=== PATIENT | female | born 1995 | race Caucasian/White ===

== ENCOUNTER 2019-12-09 14:03 | Emergency (ER) | payer MEDICAID ==
[2019-12-09 14:12] VITALS: BP 128/84
--- NOTE | 2019-12-09 16:19 | ED Physician Documentation ---
PD HPI HEENT - Stated complaint Stated Complaint: MOUTH PX - Chief complaint Chief Complaint: Heent - History obtained from History obtained from: Patient - History of Present Illness Timing - onset: How many days ago (3) Timing - duration: Days (3) Timing - details: Gradual onset, Still present Location: Tooth Improves: Medication Associated symptoms: No: Fever, Congestion, Rhinorrhea, Trismus, Unable to swallow, Swollen nodes, Facial swelling, Headache, Cough Similar symptoms before: Has not had sx before Recently seen: Not recently seen - Additional information Additional information: 24-year-old female previously well has developed some pain in the left upper tooth. She has been taking some Tylenol for this and this has not been helping. She has never had something like this happen to her before. She did noticed a crack in her tooth and she has not had any drainage from the area or any specific swelling that she can feel. She has not had a fever. Review of Systems Constitutional: denies: Fever Eyes: denies: Decreased vision Ears: denies: Ear pain Nose: denies: Rhinorrhea / runny nose, Congestion Throat: reports: Dental pain / toothache. denies: Sore throat Cardiac: denies: Chest pain / pressure Respiratory: denies: Dyspnea, Cough GI: denies: Vomiting PD PAST MEDICAL HISTORY - Present Medications Home Medications: Ambulatory Orders Medication Instructions Recorded Confirmed Amoxicillin 875 mg PO BID #14 tablet 12/09/19 Hydrocodone/Acetaminophen 1 - 2 each PO Q6H PRN #14 tablet 12/09/19 [Hydrocodon-Acetaminophen 5-325] - Allergies Allergies/Adverse Reactions: Allergies Allergy/AdvReac Type Severity Reaction Status Date / Time No Known Drug Allergies Allergy Verified 12/09/19 14:12 PD ED PE NORMAL - Vitals Vital signs reviewed: Yes (hypertensive ) - General General: Alert and oriented X 3, No acute distress, Well developed/nourished - HEENT HEENT: Atraumatic, PERRL, EOMI, Pharynx benign, Other (There is tenderness to the left #2 tooth without swelling or fluctuance to the gingival buccal fold.) - Neck Neck: Supple, no meningeal sign, No bony TTP - Cardiac Cardiac: RRR, No murmur - Respiratory Respiratory: No respiratory distress, Clear bilaterally - Derm Derm: Normal color, Warm and dry, No rash - Extremities Extremities: No deformity, No edema - Neuro Neuro: Alert and oriented X 3, otolaryngology physician 2-12 intact, No motor deficit, No sensory deficit Eye Opening: Spontaneous Motor: Obeys Commands Verbal: Oriented GCS Score: 15 - Psych Psych: Normal mood, Normal affect Results - Vitals Vitals: Vital Signs - 24 hr 12/09/19 14:10 Temperature 36.7 C Heart Rate 85 Respiratory 20 Rate Blood Pressure 128/84 H O2 Saturation 98 Oxygen O2 Source Room air PD MEDICAL DECISION MAKING - ED course Complexity details: considered differential, d/w patient ED course: Previously well 23-year-old female has a tooth ache with a crack in the tooth no obvious drainable abscess. Departure - Departure Disposition: 01 Home, Self Care Clinical Impression: Dental abscess Condition: Stable Instructions: ED Abscess Dental Follow-Up: Your, dentist [Other] Prescriptions: Amoxicillin 875 mg PO BID #14 tablet Hydrocodone/Acetaminophen [Hydrocodon-Acetaminophen 5-325] 1 - 2 each PO Q6H PRN #14 tablet PRN Reason: pain Forms: Activity restrictions
== END 2019-12-09 16:51 | disposition home or self-care (01) ==
LOC: ED 14:03
DX: K04.7 Periapical abscess without sinus (principal); K03.81 Cracked tooth
CPT/HCPCS: 99282; 99284

== ENCOUNTER 2019-12-11 19:54 | Emergency (ER) | payer MEDICAID ==
[2019-12-11 20:01] VITALS: BP 125/81
--- NOTE | 2019-12-11 20:32 | ED Physician Documentation ---
History of Present Illness - Stated complaint Stated Complaint: FLU LIKE SX - Chief complaint Chief Complaint: General - Additonal information Additional information: This is a 24-year-old female who presents with cough, sinus congestion, general malaise. Patient states that she was seen recently for tooth pain and at that time she also was having some cough and nasal symptoms but did not want a bring up too many things at once so she decided to come back here for a recheck today. She has not had any measured fever. She has had slight nausea but no abdominal pain, no dysuria. Some chronic loose stool but no changes to this. She has not had any vomiting, shortness of breath, no chest pain. She does have a mild frontal headache which was gradual in onset and is currently mild in severity. Review of Systems Constitutional: denies: Fever Nose: reports: Rhinorrhea / runny nose Cardiac: denies: Chest pain / pressure Respiratory: reports: Cough. denies: Dyspnea GI: denies: Vomiting PD PAST MEDICAL HISTORY - Present Medications Home Medications: Ambulatory Orders Medication Instructions Recorded Confirmed Amoxicillin 875 mg PO BID #14 tablet 12/09/19 12/11/19 Hydrocodone/Acetaminophen 1 - 2 each PO Q6H PRN #14 tablet 12/09/19 12/11/19 [Hydrocodon-Acetaminophen 5-325] Benzonatate [Tessalon Perle] 100 - 200 mg PO TID PRN #30 capsule 12/11/19 - Allergies Allergies/Adverse Reactions: Allergies Allergy/AdvReac Type Severity Reaction Status Date / Time No Known Drug Allergies Allergy Verified 12/11/19 20:01 PD ED PE NORMAL - Vitals Vital signs reviewed: Yes - General General: Alert and oriented X 3, No acute distress - HEENT HEENT: PERRL, Ears normal, Other (Posterior pharynx erythema, no exudate. Tonsils are surgically absent.) - Neck Neck: Supple, no meningeal sign - Cardiac Cardiac: RRR, No murmur - Respiratory Respiratory: No respiratory distress, Clear bilaterally - Abdomen Abdomen: Normal bowel sounds, Soft, Non tender, Non distended, Other (No tenderness to the palpation of all 4 quadrants.) - Derm Derm: Warm and dry - Extremities Extremities: No deformity - Neuro Neuro: Alert and oriented X 3 - Psych Psych: Normal mood, Normal affect Results - Vitals Vitals: Vital Signs - 24 hr 02/19/20 19:58 Temperature 36.6 C Heart Rate 80 Respiratory 18 Rate Blood Pressure 125/81 H O2 Saturation 100 Oxygen O2 Source Room air PD MEDICAL DECISION MAKING - ED course ED course: Patient is very well-appearing on examination. Her symptoms are consistent with a viral syndrome, she has no signs of pneumonia, sinusitis, or bacterial infection at this time. No abdominal pain or tenderness. She is on amoxicillin for her dental pain, and she also does have some hydrocodone which is taking for her dental pain. I think this is reasonable treatment. No signs of gingival abscess, or serious or worsening odontogenic infection.Patient was discharged home in good condition With Tessalon Perles for cough Departure - Departure Disposition: 01 Home, Self Care Clinical Impression: Upper respiratory infection Qualifiers: URI type: unspecified viral URI Qualified Code(s): J06.9 - Acute upper respiratory infection, unspecified Condition: Good Prescriptions: Benzonatate [Tessalon Perle] 100 - 200 mg PO TID PRN #30 capsule PRN Reason: Cough Comments: You appear to have a viral illness. These typically last 7 to 10 days. You may take ibuprofen 600 to 800 mg every 6 hours as needed for discomfort, you may also take Tylenol 650 mg, but as we discussed make sure that you are not combining this at the same time as the hydrocodone you are taking for your tooth pain. I am prescribing you Tessalon Perles to help with your cough. Make sure you are drinking plenty of fluids and getting adequate rest. If you having worsening symptoms such as trouble breathing, persistent vomiting, abdominal pain, or other worsening symptoms, return to the emergency department Discharge Date/Time: 12/11/19 20:57
[2019-12-11] MEDS ORDERED: BENZONATATE 100 MG CAPSULE PO STA (20:50)
[2019-12-11] MEDS ORDERED: ONDANSETRON ODT 4 MG TABLET TL STA (20:52)
== END 2019-12-11 20:57 | disposition home or self-care (01) ==
LOC: ED 19:54
DX: J06.9 Acute upper respiratory infection, unspecified (principal)
CPT/HCPCS: 99282; 99284; A9270; Q0162

== ENCOUNTER 2020-05-28 08:00 | Outpatient (CLI) | payer MEDICAID ==
[2020-05-28 15:23] LABS: H. PYLORIS ANTIGEN STL NEGATIVE (Negative)
== END 2020-05-28 23:59 | disposition home or self-care (01) ==
LOC: LAB.R 08:00
PROVIDERS: ATTEND Nurse Practitioner
DX: R10.9 Unspecified abdominal pain (principal); G89.29 Other chronic pain; R19.7 Diarrhea, unspecified
CPT/HCPCS: 82274; 83630; 87338; 87493

== ENCOUNTER 2020-06-28 19:49 | Emergency (ER) | payer MEDICAID ==
[2020-06-28 20:02] VITALS: BP 131/89
[2020-06-28] MEDS ORDERED: PENICILLIN VK 250 MG TABLET PO STA (20:14)
[2020-06-28] MEDS ORDERED: HYDROcod/ACETAM 5/325 MG TABLET PO STA (20:14)
--- NOTE | 2020-06-28 20:18 | ED Physician Documentation ---
History of Present Illness - Stated complaint Stated Complaint: LT EAR/TOOTH PX - Chief complaint Chief Complaint: Heent - History obtained from History obtained from: Patient, Family - History of Present Illness Timing: How many days ago (2) Pain level max: 7 Pain level now: 7 - Additonal information Additional information: 25-year-old female with left upper dental pain. Ongoing for the past several days. Worse with eating and drinking, Tylenol and Motrin are not helping. No fevers. No facial swelling. Has had problems with this tooth in the past. States unable to see a dentist currently. She is not , breast-feeding or trying to become . Review of Systems Constitutional: denies: Fever, Chills Respiratory: denies: Cough GI: denies: Nausea, Vomiting : denies: Now EGA Skin: denies: Rash PD PAST MEDICAL HISTORY - Past Medical History Past Medical History: No - Past Surgical History Past Surgical History: No - Present Medications Home Medications: Ambulatory Orders Medication Instructions Recorded Confirmed Amoxicillin 875 mg PO BID #14 tablet 12/09/19 12/11/19 Hydrocodone/Acetaminophen 1 - 2 each PO Q6H PRN #14 tablet 12/09/19 12/11/19 [Hydrocodon-Acetaminophen 5-325] Benzonatate [Tessalon Perle] 100 - 200 mg PO TID PRN #30 capsule 12/11/19 HYDROcod/ACETAM 5/325 [[place] 5/325] 1 - 2 ea PO Q6H PRN #14 tablet 06/28/20 Penicillin V Potassium 500 mg PO Q6HR #40 tablet 06/28/20 - Allergies Allergies/Adverse Reactions: Allergies Allergy/AdvReac Type Severity Reaction Status Date / Time No Known Drug Allergies Allergy Verified 06/28/20 20:00 - Living Situation Living Situation: reports: With family Living Arrangement: reports: At home - Social History Does the pt drink ETOH?: No Does the pt have substance abuse?: No PD ED PE NORMAL - Vitals Vital signs reviewed: Yes - General General: Alert and oriented X 3, No acute distress - HEENT HEENT: Moist mucous membranes, Other (Tender to palpation left upper molar. Visible caries. No gingival swelling or abscess. No facial swelling. Normal phonation. No trismus.) - Neck Neck: Supple, no meningeal sign, No adenopathy - Derm Derm: Warm and dry - Neuro Neuro: Alert and oriented X 3 - Psych Psych: Normal mood, Normal affect Results - Vitals Vitals: Vital Signs - 24 hr 06/28/20 20:00 Temperature 36.5 C Heart Rate 76 Respiratory 16 Rate Blood Pressure 131/89 H O2 Saturation 100 Oxygen O2 Source Room air PD MEDICAL DECISION MAKING - ED course Complexity details: considered differential, d/w patient ED course: Patient with dental caries and dental pain. Will place on antibiotics and pain medication. Recommend she follow-up closely with a dentist. Patient counseled regarding signs and symptoms for which I believe and urgent re-evaluation would be necessary. Patient with good understanding of and agreement to plan and is comfortable going home at this time This document was made in part using voice recognition software. While efforts are made to proofread this document, sound alike and grammatical errors may occur. Departure - Departure Disposition: 01 Home, Self Care Clinical Impression: Pain due to dental caries Condition: Good Instructions: ED Tooth Pain Follow-Up: your,dentist within 1 week [Other] Prescriptions: Penicillin V Potassium 500 mg PO Q6HR #40 tablet HYDROcod/ACETAM 5/325 [[place] 5/325] 1 - 2 ea PO Q6H PRN #14 tablet PRN Reason: Pain Comments: Take all antibiotics until gone. Return if you worsen. Follow-up with dentistry as soon as possible. Hopefully this week. Do not drink alcohol or drive while on narcotic pain medicine. Note that many narcotic pain relievers also contain tylenol/acetaminophen. Please ensure that your total dose of acetaminophen from all sources does not exceed 3 grams (3000mg) per day. You may constipated on this medication, take a stool softener such as "Colace" twice a day while you are on it. Also recommend a [id number] laxative such as senna or MiraLAX any day that you do not have a bowel movement. If you received narcotic pain medication in the emergency department, do not drive or operate machinery for the next 24 hours.
== END 2020-06-28 20:28 | disposition home or self-care (01) ==
LOC: ED 19:49
DX: K02.9 Dental caries, unspecified (principal)
CPT/HCPCS: 99282; 99284; A9270

== ENCOUNTER 2020-09-24 15:23 | Outpatient (CLI) | payer MEDICAID ==
--- NOTE | 2020-09-24 16:38 | Ultrasound Report ---
PROCEDURE: Pelvic w/Transvaginal INDICATIONS: HEAVY MENSTRUATION, MENSTRUAL PAIN TECHNIQUE: Real-time scanning was performed of the pelvic organs, with image documentation. Additional endovagi nal scanning was necessary due to incomplete visualization of the adnexal and endometrial structures by transabdominal scanning. COMPARISON: None. FINDINGS: Transabdominal scanning: Limited scanning through the kidneys shows no hydronephrosis. No pathologi c free abdominal or pelvic fluid. Endovaginal scanning: Uterus: In the lower uterine segment abutting the endocervical os, there is echogenic material measur ing approximately 1.0 x 1.0 x 0.7 cm. This is nonspecific. The uterus measures 3.1 x 4.0 x 6.6 cm. En dometrium measures 12 mm in maximal double layer thickness. Ovaries: Both ovaries are normal in size and appearance, measuring 1.9 x 2.7 x 3.5 cm on the right a nd 1.9 x 2.3 x 4.0 cm on the left. Small bilateral follicles are present in both ovaries. IMPRESSION: Nonspecific echogenic material in the lower uterine segment abutting the endocervical os. There is va scularity within the material suggesting that it could represent solid tissue. Chief differential con siderations include blood products versus neoplasm of cervical origin. Correlation with any physical exam and Pap smear findings is recommended. Follow-up is also recommended, as blood products would be expected to pass and resolve on follow-up imaging. Reviewed by: Bobo Jenkins MD on 09/24/2020 4:37 PM PST Approved by: Boob Jenkins MD on 09/24/2020 4:37 PM PST Station ID: [id number]
== END 2020-09-24 15:24 | disposition home or self-care (01) ==
LOC: DI 15:23
PROVIDERS: ATTEND Nurse Practitioner
DX: N92.0 Excessive and frequent menstruation with regular cycle (principal); N94.6 Dysmenorrhea, unspecified

== ENCOUNTER 2020-12-10 08:43 | Emergency (ER) | payer MEDICAID ==
[2020-12-10 08:58] VITALS: BP 134/84
[2020-12-10] MEDS ORDERED: DEXAMETHASONE 10 MG/ML VIAL PO STA (09:25)
[2020-12-10] MEDS ORDERED: CHERRY SYRUP 10 ML UDC PO ONE (09:25)
[2020-12-10] MEDS ORDERED: KETOROLAC 60 MG/2 ML VIAL IM STA (09:25)
--- NOTE | 2020-12-10 09:30 | ED Physician Documentation ---
PD HPI BACK PAIN - Stated complaint Stated Complaint: BACK PX - Chief complaint Chief Complaint: Back Pain - History obtained from History obtained from: Patient, Family - History of Present Illness Timing - onset: Today Timing - duration: Hours Timing - details: Abrupt onset, Still present Location: Mid, Left Quality: Pain, Spasm, Sharp Associated symptoms: No: Fever, Weakness, Numbness, Incontinent of urine, Unable to urinate, Hematuria, Incontinent of stool Improves with: Rest Worsened by: Movement, Lifting, Twisting, Palpation Contributing factors: Other (started house cleaning this week) Similar symptoms before: Diagnosis (sciatica) Recently seen: Not recently seen - Additional information Additional information: Previously well 25-year-old female started working doing [employer] and 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 Today she went to put on her jeans had sudden onset of severe sharp pain in the mid back on the left side. She has pain with any movement and pain. She has had some trouble previously with back pain/sciatica and this is different in location/severity. She has not otherwise been ill. Review of Systems Constitutional: denies: Fever Eyes: denies: Decreased vision Ears: denies: Ear pain Nose: denies: Congestion Throat: denies: Sore throat Cardiac: denies: Chest pain / pressure, Palpitations Respiratory: denies: Dyspnea, Cough GI: denies: Abdominal Pain, Nausea, Vomiting : denies: Dysuria, Frequency Skin: denies: Rash Musculoskeletal: reports: Back pain. denies: Neck pain, Extremity pain Neurologic: denies: Generalized weakness, Focal weakness, Numbness PD PAST MEDICAL HISTORY - Past Medical History Past Medical History: Yes Cardiovascular: Other Psych: Depression - Past Surgical History Past Surgical History: No Cardiovascular: Other HEENT: Tonsil/Adenoidectomy - Present Medications Home Medications: Ambulatory Orders Medication Instructions Recorded Confirmed Cyclobenzaprine [Flexeril] 10 mg PO TID PRN #20 tab 12/10/20 HYDROcod/ACETAM 5/325 [[place] 5/325] 1 - 2 ea PO Q6H PRN #12 tab 12/10/20 Sertraline [Zoloft] 25 mg PO DAILY 12/10/20 12/10/20 - Allergies Allergies/Adverse Reactions: Allergies Allergy/AdvReac Type Severity Reaction Status Date / Time No Known Drug Allergies Allergy Verified 12/10/20 08:57 - Social History Does the pt smoke?: No Smoking Status: Never smoker Does the pt drink ETOH?: No Does the pt have substance abuse?: No - Immunizations Immunizations are current?: Yes - POLST Patient has POLST: No PD ED PE NORMAL - Vitals Vital signs reviewed: Yes (hypertensive mild ) - General General: Alert and oriented X 3, No acute distress, Well developed/nourished - HEENT HEENT: Atraumatic, PERRL, EOMI - Neck Neck: Supple, no meningeal sign, No bony TTP - Cardiac Cardiac: RRR, No murmur - Respiratory Respiratory: No respiratory distress, Clear bilaterally - Back Back: No CVA TTP, Other (There is mild tenderness to the paraspinous muscles of the lumbar spine at the T/L junction on the right side. There is not CVA tenderness. There is pain with movement. ) - Derm Derm: Normal color, Warm and dry, No rash - Extremities Extremities: No deformity, No edema - Neuro Neuro: Alert and oriented X 3, contracts director 2-12 intact, No motor deficit, No sensory deficit, Normal speech Eye Opening: Spontaneous Motor: Obeys Commands Verbal: Oriented GCS Score: 15 - Psych Psych: Normal mood, Normal affect Results - Vitals Vitals: Vital Signs - 24 hr 12/10/20 08:53 Temperature 36.2 C L Heart Rate 84 Respiratory 20 Rate Blood Pressure 134/84 H O2 Saturation 96 Oxygen O2 Source Room air PD MEDICAL DECISION MAKING - ED course Complexity details: considered differential, d/w patient ED course: 25-year-old female with acute onset of lumbar muscle spasm in the upper lumbar spine after excessive use several days ago doing housecleaning. I have encouraged patient to hydrate excessively and we have given her 10 mg of dexamethasone and 60 mg of Toradol IM we will send her home with a prescription for some pain medication a muscle relaxant and note for work for 2 days. Departure - Departure Disposition: 01 Home, Self Care Clinical Impression: Spasm of back muscles Condition: Stable Instructions: ED Spasm Back No Trauma Follow-Up: Franchesca Soliz ARNP, [facility] [Primary Care Provider] - Prescriptions: Cyclobenzaprine [Flexeril] 10 mg PO TID PRN #20 tab PRN Reason: Spasms HYDROcod/ACETAM 5/325 [[place] 5/325] 1 - 2 ea PO Q6H PRN #12 tab PRN Reason: Pain Forms: Activity restrictions
== END 2020-12-10 09:41 | disposition home or self-care (01) ==
LOC: ED 08:43
DX: M62.830 Muscle spasm of back (principal)
CPT/HCPCS: 96372; 99283; 99284; A9270

== ENCOUNTER 2021-05-15 00:02 | Emergency (ER) | payer MEDICAID ==
[2021-05-15 00:13] VITALS: BP 127/81
[2021-05-15] MEDS ORDERED: methocarbamoL 500 MG TABLET PO STA (00:35)
[2021-05-15] MEDS ORDERED: KETOROLAC 15 MG/ML VIAL IM STA (00:35)
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
== END 2021-05-15 00:55 | disposition home or self-care (01) ==
LOC: ED 00:02
DX: R51.9 Headache, unspecified (principal); V49.40XA Driver injured in collision with unspecified motor vehicles in traffic accident, initial encounter
CPT/HCPCS: 96372; 99283; 99284; A9270

== ENCOUNTER 2021-10-10 10:03 | Emergency (ER) | payer MEDICAID ==
[2021-10-10] MEDS ORDERED: KETOROLAC 30 MG/ML VIAL IVP STA ×2 (10:21→12:53)
[2021-10-10] MEDS ORDERED: SODIUM CHLORIDE 0.9% 1,000 ML IV STA (10:21)
[2021-10-10] MEDS ORDERED: LOPERAMIDE 2 MG CAPSULE PO STA (10:22)
--- NOTE | 2021-10-10 10:23 | ED Physician Documentation ---
History of Present Illness - Stated complaint Stated Complaint: BACK PX,NAUSEA,WEAKNESS - Chief complaint Chief Complaint: General - History obtained from History obtained from: Patient - Additonal information Additional information: 26-year-old woman with history of bigeminy but otherwise healthy presents with an illness that started yesterday marked by vomiting and diarrhea. No blood from either end. She is feeling achy and chills but no measured fevers. is a possibility and she is 6 days late on her menses but had a home test for that was negative. No sick contacts. No recent travel. She is fully vaccinated against Covid. 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 : Kidney stones HEENT: None Psych: Depression Musculoskeletal: None Derm: None - Past Surgical History Past Surgical History: No Cardiovascular: Cardiac catheterization, Other HEENT: Tonsil/Adenoidectomy - Present Medications Home Medications: Ambulatory Orders Medication Instructions Recorded Confirmed Dicyclomine [Bentyl] 1 - 2 tab PO QID PRN #20 cap 10/10/21 Meloxicam [Mobic] 7.5 mg PO BID PRN #10 tablet 10/10/21 Ondansetron Odt [Zofran] 4 mg TL Q6H PRN #10 tablet 10/10/21 - Allergies Allergies/Adverse Reactions: Allergies Allergy/AdvReac Type Severity Reaction Status Date / Time No Known Drug Allergies Allergy Verified 10/10/21 10:06 - Social History Does the pt smoke?: No Smoking Status: Never smoker Does the pt drink ETOH?: No Does the pt have substance abuse?: Yes Substance Use and Type: Marijuana - Immunizations Immunizations are current?: Yes - POLST Patient has POLST: No PD ED PE NORMAL - Vitals Vital signs reviewed: Yes - General General: Alert and oriented X 3, No acute distress - HEENT HEENT: Pharynx benign - Neck Neck: Supple, no meningeal sign, No bony TTP - Cardiac Cardiac: RRR, No murmur - Respiratory Respiratory: No respiratory distress, Clear bilaterally - Abdomen Abdomen: Normal bowel sounds, Soft, Non tender - Back Back: No CVA TTP, No spinal TTP - Derm Derm: Normal color, Warm and dry - Extremities Extremities: No edema, No calf tenderness / cord - Neuro Neuro: Alert and oriented X 3, Normal speech Results - Vitals Vitals: Vital Signs - 24 hr 10/10/21 10/10/21 10/10/21 10:06 10:43 12:25 Temperature 36.6 C Heart Rate 105 H 87 83 Respiratory 18 16 18 Rate Blood Pressure 124/80 114/68 118/78 O2 Saturation 98 99 99 Oxygen O2 Source Room air - Labs Labs: Laboratory Tests 10/10/21 10/10/21 10:35 12:12 Sodium 134 L Potassium 3.5 Chloride 104 Carbon Dioxide 19 L Anion Gap 11.0 BUN 13 Creatinine 0.9 Estimated GFR (MDRD) 76 L Glucose 106 H Calcium 9.0 Total Bilirubin 1.0 AST 19 ALT 23 Alkaline Phosphatase 55 Total Protein 7.8 Albumin 4.2 Globulin 3.6 Albumin/Globulin Ratio 1.2 Lipase 25 Urine Color YELLOW Urine Clarity CLEAR Urine pH 6.0 Ur Specific [place] 1.010 Urine Protein NEGATIVE Urine Glucose (UA) NEGATIVE Urine Ketones NEGATIVE Urine Occult Blood NEGATIVE Urine Nitrite NEGATIVE Urine Bilirubin NEGATIVE Urine Urobilinogen 0.2 (NORMAL) Ur Leukocyte Esterase NEGATIVE Ur Microscopic Review NOT INDICATED Urine Culture Comments NOT INDICATED Urine HCG, Qual NEGATIVE PD MEDICAL DECISION MAKING - ED course ED course: 26-year-old woman with what sounds like gastroenteritis. She has no respiratory symptoms and no fever and declines Covid testing. is a possibility and we will check. Her exam is benign. She is treated symptomatically for gastroenteritis with IV fluids, Zofran, Toradol, and Imodium. She did require repeat antiemetic with Reglan but was feeling better after that and passed an oral challenge. test was negative. Labs are not truly remarkable. Departure - Departure Disposition: 01 Home, Self Care Clinical Impression: Gastroenteritis Condition: Good Instructions: ED Gastroenteritis Viral Prescriptions: Dicyclomine [Bentyl] 1 - 2 tab PO QID PRN #20 cap PRN Reason: Abdominal Pain Meloxicam [Mobic] 7.5 mg PO BID PRN #10 tablet PRN Reason: Pain Ondansetron Odt [Zofran] 4 mg TL Q6H PRN #10 tablet PRN Reason: Nausea / Vomiting Comments: Your prescriptions were sent electronically to [facility] in [place]. Return for new or worsening symptoms. Or return in the next 24 to 36 hours if your symptoms do not resolve. As discussed I believe you are suffering from gastroenteritis which is very common illness, usually thankfully a short illness.
[2021-10-10 10:57] LABS: ALBUMIN 4.2 g/dL (3.2-5.5); ALBUMIN/GLOBULIN RATIO 1.2 (1.0-2.2); CREATININE 0.9 mg/dL (0.4-1.0); POTASSIUM 3.5 mmol/L (3.5-5.0); TOTAL PROTEIN 7.8 g/dL (6.7-8.2)
[2021-10-10] MEDS ORDERED: METOCLOPRAMIDE 10 MG/2 ML VIAL IVP STA (12:12)
[2021-10-10 12:19] LABS: BILIRUBIN,URINE NEGATIVE (NEGATIVE); GLUCOSE, URINE (UA) NEGATIVE (NEGATIVE); KETONES,URINE (UA) NEGATIVE (NEGATIVE); LEUKOCYTE ESTERASE, URINE NEGATIVE (NEGATIVE); NITRITE,URINE NEGATIVE (NEGATIVE); OCCULT BLOOD,URINE NEGATIVE (NEGATIVE); PROTEIN,URINE NEGATIVE (NEGATIVE); UROBILINOGEN,URINE 0.2 (NORMAL) E.U./dL (NORMAL)
[2021-10-10 12:22] LABS: CLARITY,URINE CLEAR (CLEAR); HCG UR QUAL NEGATIVE
[2021-10-10 12:27] VITALS: BP 118/78
== END 2021-10-10 13:10 | disposition home or self-care (01) ==
LOC: ED 10:03
DX: K52.9 Noninfective gastroenteritis and colitis, unspecified (principal); Z32.02 Encounter for pregnancy test, result negative
CPT/HCPCS: 36415; 80053; 81003; 81025; 83690; 96374; 96375; 96376; 99283; A9270; J2765; 81001; 87086

== ENCOUNTER 2022-04-03 14:10 | Emergency (ER) | payer MEDICAID ==
[2022-04-03 14:14] VITALS: BP 144/66
--- NOTE | 2022-04-03 14:37 | ED Physician Documentation ---
History of Present Illness - Stated complaint Stated Complaint: POSSIBLE WORMS - Chief complaint Chief Complaint: General - History obtained from History obtained from: Patient (The dog has worms. She has noticed small white worms in her stool. 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 : Kidney stones HEENT: None Psych: Depression Musculoskeletal: None Derm: None - Past Surgical History Past Surgical History: No Cardiovascular: Cardiac catheterization, Other HEENT: Tonsil/Adenoidectomy - Present Medications Home Medications: Ambulatory Orders Medication Instructions Recorded Confirmed Dicyclomine [Bentyl] 1 - 2 tab PO QID PRN #20 cap 10/10/21 Meloxicam [Mobic] 7.5 mg PO BID PRN #10 tablet 10/10/21 Ondansetron Odt [Zofran] 4 mg TL Q6H PRN #10 tablet 10/10/21 Albendazole 2 tab PO ONCE #4 tablet 04/03/22 - Allergies Allergies/Adverse Reactions: Allergies Allergy/AdvReac Type Severity Reaction Status Date / Time No Known Drug Allergies Allergy Verified 04/03/22 14:14 - Social History Does the pt smoke?: No Smoking Status: Never smoker Does the pt drink ETOH?: No Does the pt have substance abuse?: Yes - Immunizations Immunizations are current?: Yes - POLST Patient has POLST: No PD ED PE NORMAL - Vitals Vital signs reviewed: Yes - General General: Alert and oriented X 3, No acute distress - Neuro Neuro: Alert and oriented X 3, Normal speech - Psych Psych: Normal mood, Normal affect Results - Vitals Vitals: Vital Signs - 24 hr 04/03/22 14:12 Temperature 36.5 C Heart Rate 87 Respiratory 16 Rate Blood Pressure 144/66 H O2 Saturation 100 Oxygen O2 Source Room air Departure - Departure Disposition: 01 Home, Self Care Clinical Impression: Enterobiasis Condition: Good Record reviewed to determine appropriate education?: Yes Instructions: ED Enterobiasis Prescriptions: Albendazole 2 tab PO ONCE #4 tablet Comments: I sent your prescription to [facility]
== END 2022-04-03 14:47 | disposition home or self-care (01) ==
LOC: ED 14:10
DX: B80 Enterobiasis (principal)
CPT/HCPCS: 99281; 99282

== ENCOUNTER 2022-10-11 15:12 | Emergency (ER) | payer MEDICAID ==
[2022-10-11 15:22] VITALS: BP 124/69
--- NOTE | 2022-10-11 15:28 | ED Physician Documentation ---
PD HPI LOWER EXT INJURY - Stated complaint Stated Complaint: RT HIP PX - Chief complaint Chief Complaint: Trauma Ext - History obtained from History obtained from: Patient - Additional information Additional information: 27-year-old woman who is generally healthy with the exception of a history of bigeminy, with no possibility of without sliding in the snow about an hour ago and came off of the sled and hit her right hip on the curb. Pain radiates to the low back and down to the knee. She is not able to walk or bear weight. No other injuries. 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 : Kidney stones HEENT: None Psych: Depression Musculoskeletal: None Derm: None - Past Surgical History Past Surgical History: No Cardiovascular: Cardiac catheterization, Other HEENT: Tonsil/Adenoidectomy - Present Medications Home Medications: Ambulatory Orders Medication Instructions Recorded Confirmed Dicyclomine [Bentyl] 1 - 2 tab PO QID PRN #20 cap 10/10/21 Meloxicam [Mobic] 7.5 mg PO BID PRN #10 tablet 10/10/21 Ondansetron Odt [Zofran] 4 mg TL Q6H PRN #10 tablet 10/10/21 Albendazole 2 tab PO ONCE #4 tablet 04/03/22 HYDROcod/ACETAM 5/325 [[place] 5/325] 1 - 2 tab PO Q6H PRN #15 tablet 10/11/22 Ibuprofen [Motrin] 800 mg PO Q8H PRN #30 tablet 10/11/22 - Allergies Allergies/Adverse Reactions: Allergies Allergy/AdvReac Type Severity Reaction Status Date / Time No Known Drug Allergies Allergy Verified 10/11/22 15:22 - Social History Does the pt smoke?: No Smoking Status: Never smoker Does the pt drink ETOH?: No Does the pt have substance abuse?: Yes - Immunizations Immunizations are current?: Yes - POLST Patient has POLST: No PD ED PE NORMAL - Vitals Vital signs reviewed: Yes - General General: Alert and oriented X 3, No acute distress - HEENT HEENT: PERRL, EOMI - Neck Neck: Supple, no meningeal sign, No bony TTP - Abdomen Abdomen: Non tender - Extremities Extremities: Other (No tenderness of the lumbar spine. No tenderness of the pelvis but she is very tender over the lateral right hip with pain with internal and external rotation. The remainder of her extremities are palpated and nontender.) - Neuro Neuro: Alert and oriented X 3, Normal speech Results - Vitals Vitals: Vital Signs - 24 hr 10/11/22 10/11/22 15:17 15:22 Temperature 36.3 C L 36.5 C Heart Rate 93 93 Respiratory 16 16 Rate Blood Pressure 124/69 124/69 O2 Saturation 97 97 Oxygen O2 Source Room air - Rads (name of study) X-ray of the right hip is unremarkable Radiology: Final report received, EMP read indepedently PD Medical Decision Making - ED course ED course: She presents with an isolated right hip injury after a fall on the ice. X-rays were negative and she was able to walk and bear weight with a walker after that. Given close return precautions, but given her young age and good bone density occult fracture is unlikely. Departure - Departure Disposition: 01 Home, Self Care Clinical Impression: Contusion of right hip Qualifiers: Encounter type: initial encounter Qualified Code(s): S70.01XA - Contusion of right hip, initial encounter Condition: Good Record reviewed to determine appropriate education?: Yes Instructions: ED Contusion Hip Prescriptions: Ibuprofen [Motrin] 800 mg PO Q8H PRN #30 tablet PRN Reason: PAIN &/OR FEVER HYDROcod/ACETAM 5/325 [[place] 5/325] 1 - 2 tab PO Q6H PRN #15 tablet PRN Reason: Pain Comments: I sent your prescriptions electronically to [facility] in [place]. As discussed ice and general rest for the next few days. If not better by the end of the weekend, return for reevaluation and potential for repeat imaging. Sooner if wo rse. I am prescribing a short course of narcotic pain medication for you. These are potentially dangerous and addictive medications that should be used carefully. These medications may constipate you. Take an phpt-uat-[id number] stool softener (docusate) twice daily with plenty of water while taking these medications. If you go 24 hours without a bowel movement, take nfyr-ucx-ufsybfz miralax, per pa ckage instructions. Do not drink or drive while taking these medications. If you received narcotic or sedating medications while in the emergency department, do not drive for 24 hours. Store this medication in a safe, secure place and out of reach of children. It is a violation of federal law to give or sell this medication to another person or to use in a manner other than prescribed. The ED will not refill narcotic prescriptions, including prescriptions lost or stolen. To dispose of unwanted medications: 1. [facility] [address] in [place] has a medication drop box. They accept prescription medications (in pill form) Monday through Monday 9:00 a.m. to 5:00 p.m. 2. The [facility] [employer] accepts prescription medications (in pill form only) for disposal year round. Call for more information. 3. Contact the [facility] for the next [facility] sponsored prescription drug collection event. , [phone], or [phone]; Note that many narcotic pain relievers also contain Tylenol/acetaminophen. Please ensure that your total dose of acetaminophen from all sources does not exceed 3 g (3000 mg) per day.
[2022-10-11] MEDS: oxyCODONE 5 MG TABLET PO STA (15:31)
[2022-10-11] MEDS: IBUPROFEN 800 MG TABLET PO STA (15:32)
--- NOTE | 2022-10-11 15:47 | XRAY Report ---
PROCEDURE: Hip w/Pelvis 2-3V RT INDICATIONS: hip inj TECHNIQUE: AP pelvis with lateral view(s) of the right hip(s). COMPARISON: None. FINDINGS: Bones: No fractures or dislocations. Pelvic ring appears intact. No suspicious bony lesions. Soft tissues: The visualized bowel gas pattern is normal. No suspicious soft tissue calcifications. IMPRESSION: No acute right hip fracture or dislocation. Reviewed by: Som Murray MD on 10/11/2022 3:45 PM PST Approved by: Som Murray MD on 10/11/2022 3:45 PM PST Station ID: [id number]
== END 2022-10-11 16:59 | disposition home or self-care (01) ==
LOC: ED 15:12
DX: S70.01XA Contusion of right hip, initial encounter (principal); W22.09XA Striking against other stationary object, initial encounter; Y93.23 Activity, snow (alpine) (downhill) skiing, snowboarding, sledding, tobogganing and snow tubing
CPT/HCPCS: 73502; 99282; 99283; A9270

== ENCOUNTER 2022-12-27 22:24 | Outpatient (CLI) | payer MEDICAID ==
--- NOTE | 2022-12-28 15:47 | Ultrasound Report ---
PROCEDURE: Pelvic w/Transvaginal INDICATIONS: ABNORMAL US, HEAVY MENSTRUATION TECHNIQUE: Real-time scanning was performed of the pelvic organs, with image documentation. Additional endovagi nal scanning was necessary due to incomplete visualization of the adnexal and endometrial structures by transabdominal scanning. COMPARISON: None. FINDINGS: The uterine body measures 4.2 x 5.0 x 8.0 cm. The endometrium measures 16 mm in double layer thicknes s. No uterine mass. Both ovaries normal in size and appearance with no ovarian or adnexal mass. IMPRESSION: Normal study. Previously seen echogenic material in the lower uterine segment and cervix is no longer present, likely blood products on the previous exam. Reviewed by: Bobo Jenkins MD on 12/28/2022 3:46 PM PST Approved by: Bobo Jenkins MD on 12/28/2022 3:46 PM PST Station ID: [id number]
== END 2022-12-27 22:25 | disposition home or self-care (01) ==
LOC: DI 22:24
PROVIDERS: ATTEND Nurse Practitioner Family
DX: R93.89 Abnormal findings on diagnostic imaging of other specified body structures (principal); N92.0 Excessive and frequent menstruation with regular cycle; N94.6 Dysmenorrhea, unspecified

== ENCOUNTER 2023-02-05 18:29 | Emergency (ER) | payer MEDICAID ==
[2023-02-05] MEDS ORDERED: BACITRACIN ZINC OINT 1 PACKET TOP STA (20:49)
--- NOTE | 2023-02-05 20:49 | ED Physician Documentation ---
History of Present Illness - Stated complaint Stated Complaint: CUT RT FINGER - Chief complaint Chief Complaint: Ext Problem - Additonal information Additional information: 27-year-old female presents emergency department for evaluation of acute right thumb pain. 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 Her thumb was struck gravel and was quite contaminated. She is here for a cleanout and tetanus updating. She is right-hand dominant. 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 : Kidney stones HEENT: None Psych: Depression Musculoskeletal: None Derm: None - Past Surgical History Past Surgical History: No Cardiovascular: Cardiac catheterization, Other HEENT: Tonsil/Adenoidectomy - Present Medications Home Medications: Ambulatory Orders Medication Instructions Recorded Confirmed Dicyclomine [Bentyl] 1 - 2 tab PO QID PRN #20 cap 10/10/21 Meloxicam [Mobic] 7.5 mg PO BID PRN #10 tablet 10/10/21 Ondansetron Odt [Zofran] 4 mg TL Q6H PRN #10 tablet 10/10/21 Albendazole 2 tab PO ONCE #4 tablet 04/03/22 HYDROcod/ACETAM 5/325 [[place] 5/325] 1 - 2 tab PO Q6H PRN #15 tablet 10/11/22 Ibuprofen [Motrin] 800 mg PO Q8H PRN #30 tablet 10/11/22 - Allergies Allergies/Adverse Reactions: Allergies Allergy/AdvReac Type Severity Reaction Status Date / Time No Known Drug Allergies Allergy Verified 10/11/22 15:22 - Social History Does the pt smoke?: No Smoking Status: Never smoker Does the pt drink ETOH?: No Does the pt have substance abuse?: Yes - Immunizations Immunizations are current?: Yes - POLST Patient has POLST: No PD ED PE EXPANDED - Extremities Extremities: Right finger(s) (Right thumb distal flap laceration to the radial side. Heavily contaminated with dirt.) Results - Vitals Vitals: Vital Signs - 24 hr 02/05/23 18:38 Temperature 36.4 C L Heart Rate 92 Respiratory 20 Rate Blood Pressure 127/72 O2 Saturation 97 Oxygen O2 Source Room air - Rads (name of study) right thumb xr Relevant Findings:: EMP independent interpretation of test (No acute fracture or osseous lesion or dislocation.) Procedures - General procedure General procedure: Wound care: Utilizing 1% lidocaine the distal tip of the left thumb was anesthetized. Once this was accomplished chlorhexidine and saline was used to cleanse the wound and flap laceration. The laceration was not amenable to closure and given the heavy contamination of the wound with dirt and debris the decision was made to simply trim the skin edges away leaving a deeper abrasion appearance to the tip of the thumb. PD Medical Decision Making - ED course Complexity details: d/w patient ED course: 27-year-old female presents emergency department for evaluation of a flap laceration to the distal tip of her left thumb sustained when she fell. Was a heavily contaminated wound. Patient was also intolerant of simple examination and thus the decision was made to anesthetize the wound using 1% lidocaine. An x-ray had been obtained and per my interpretation there were no findings suggest acute fracture. Was able to adequately wash the wound with chlorhexidine and saline once it was anesthetized. This revealed a flap laceration that was not amenable to primary care. In order to help prevent infection and promote wound healing the decision was made to simply trim the skin away revealing a deeper abrasion. Bacitracin was applied to the wound. Tetanus was updated today. Patient is discharged home in stable condition with the usual emergent return precautions discussed Departure - Departure Disposition: 01 Home, Self Care Clinical Impression: Laceration of right thumb Qualifiers: Encounter type: initial encounter Damage to nail status: without damage Foreign body presence: without foreign body Qualified Code(s): S61.011A - Laceration without foreign body of right thumb without damage to nail, initial encounter Comments: The laceration to your thumb was heavily contaminated with dirt and debris. We were able to anesthetize the thumb using some lidocaine following this was heavily cleaned with chlorhexidine and water. The flap edge of the laceration was trimmed away to reveal simply an abrasion. I expect that this will heal well over the next week or so. Make sure you are using a finger condom when working. Gently wash with warm soap and water twice daily, pat dry and apply a simple antibiotic ointment such as bacitracin and a simple bandage. After several days it is going to be important that you allow the thumb to dry out. A constantly wet or moist thumb will breed infection. Return to the ER if you have any concerns of infection.
--- NOTE | 2023-02-05 21:10 | XRAY Report ---
PROCEDURE: Finger(s) RT INDICATIONS: thumb; r/o fx TECHNIQUE: AP hand, 3 views of the right finger(s) acquired. COMPARISON: None. FINDINGS: Bones: A no displaced fracture. No dislocation. Soft tissues: Suspected finger tip soft tissue injury with small hyperdense bodies. IMPRESSION: No acute osseous abnormality. If there is high concern for occult injury, consider repeat radiography or cross-sectional imaging. Suspected thumb tip soft tissue/nailbed injury with few hyperdense prob able foreign bodies. Reviewed by: Clarke Rivera MD on 02/05/2023 9:09 PM PDT Approved by: Clarke Rivera MD on 02/05/2023 9:09 PM PDT Station ID: [id number]
[2023-02-05 21:24] VITALS: BP 119/72
== END 2023-02-05 21:24 | disposition home or self-care (01) ==
LOC: ED 18:29
DX: S61.021A Laceration with foreign body of right thumb without damage to nail, initial encounter (principal); W01.0XXA Fall on same level from slipping, tripping and stumbling without subsequent striking against object, initial encounter; Y93.89 Activity, other specified; Y92.79 Other farm location as the place of occurrence of the external cause; Y99.0 Civilian activity done for income or pay
CPT/HCPCS: 73140; 99283; A9270

== ENCOUNTER 2023-02-27 13:29 | Outpatient (CLI) | payer MEDICAID ==
[2023-02-27 21:54] VITALS: BP 117/73
--- NOTE | 2023-02-27 21:54 | SLEEP CARE CONSULTATION ---
Information from patient questionnaire entered by Camilla Swartz. I have reviewed and concur with the information entered by Camilla Swartz. This document represents the service I personally performed and the decisions made by me, Vinicio Clemens MD, [facility]. History of Present Illness Service Date and Time: 02/27/2023 1329 Reason for Visit: New patient Additional HPI information: I have the pleasure of seeing Ms. Valdivia along with her Toy today regarding the possibility of her having a sleep disorder. As you know, she is a 26-year-old lady who complains of frequent awakenings and unrefreshed sleep. Her says sometimes she wakes up in panic attacks. The patient tells me that she normally goes to bed around 10 pm - midnight, and it takes her approximately 5 minutes to fall asleep. She has been told that she snores loudly and irregularly at night. She has also been observed to stop breathing in her sleep. Her can still sleep in the same bed. She can recall waking up on the average of 2 - 6 times during the night. Most of the time she wakes up because of noises. She has awakened occasionally because of her own snoring, choking, and having to gasp for air. There is not a lot of tossing and turning in her sleep. No somniloquy (sleep talking) or somnambulism (sleep walking). Generally, she can recall having dreams. In the morning she usually gets up out of the bed around 5 - 6 a.m. not feeling refreshed nor rested. She usually does have a morning headache that lasts a couple of hours. During the day she complains of feeling sleepy and fatigued. Her score on Lincoln Sleepiness Scale is 18 out of 24. She never has fallen asleep while driving nor has had any accident due to sleepiness. She usually takes naps during the day. Upon falling asleep during the day she denies having vivid dreams. She reports having impaired concentration during the day. 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 Patient is and lives in [place]. Alcohol use: No Caffeine use: No Allergies and Home Medications Drug allergies reviewed: Yes Home medication list reviewed: Yes (Sertraline, not taking) Allergy and home medication list: Allergies No Known Drug Allergies Allergy (Verified 02/24/23 11:47) Review of Systems Cardiovascular: denies: high blood pressure, palpitations, chest pain, irregular heart rate or pulse, leg or foot swelling, have to sleep sitting up, other Respiratory: reports: wheeze Gastrointestinal: denies: heartburn, difficulty swallowing, nausea, vomitting, diarrhea, abdominal pain, other Neurological: denies: headaches, seizure, head trauma, disorientation, speech dysfunction, gait or balance problems, fainting or unconsciousness, other Ear/Nose/Throat: denies: nasal congestion, sinus problems, nose bleeds, dry mouth/throat, hoarseness, injury to nose, tonsillectomy, wisdom teeth removed, other Endocrine: denies: thyroid disease, history of goiter, sluggishness, too hot or cold, excessive thirst, increased appetite, increased urination, unexplained weakness, other Musculoskeletal: denies: joint pain, neck pain, back pain, joint swelling, muscle pain or cramping, mobility problems, other Immunologic: denies: sneezing, rash, itching, allergies to food or environment, other Physical Exam Vital signs obtained and entered by: Anupama Clemens Blood Pressure: 117/73 Cuff size: regular Heart Rate: 75 O2 Saturation: 99 Height: 5 ft 2 in Weight: 184 lb Body Mass Index: 33.6 BMI Classification: Obese Neck circumference: 14.5 Mood/affect: normal HEENT: No craniofacial malformation Nostrils: partially obstructed (left) Turbinates: normal Septum: midline Mouth and throat: narrow oropharynx Soft palate: normal Hard palate: normal Uvula: normal Uvula visualization: 100% Mallampati Class I Tongue: normal in size Tonsils: absent bilaterally Chin and jaw: normal size and position Neck: normal w/o lymphadenopathy or thyromegaly Heart: regular rate and rhythm Lungs: clear bilaterally Extremities: no edema or clubbing Neurologic: intact Impression and Plan IMPRESSION: 1. Obstructive Sleep Apnea-Hypopnea Syndrome, as evident by history of loud and irregular snoring, observed cessation of breath while asleep, frequent awakenings during the night, nocturnal choking, unrefreshed sleep, morning headache, cognitive impairment, and daytime hypersomnolence. Narrow oropharynx and obesity are common predisposing factors for obstructive sleep apnea-hypopnea syndrome. I recommend proceeding to polysomnography to confirm the diagnosis and to assess severity. If she has significant sleep disordered breathing, a manual CPAP titration study will also be performed to find the optimal treatment pressure. I informed the patient of what the sleep studies involve and after some discussion, she agreed to proceed. Plan: 1. Schedule polysomnography +/- manual CPAP titration study and return in 1 to 2 weeks after the study to discuss result and initiate therapy. 2. Avoid long distance driving or when feeling sleepy. 3. Avoid alcohol, sedative and muscle relaxant around bedtime. 4. Attempt to lose weight. Counseling Topics: Weight control Follow up with Sleep Care in: 1-2 months Plan: in-lab PSG Visit Type: In Office Time Spent with Patient (minutes): 15 Provider Statement: I spent 100% of the Face to Face Visit with the patient with greater than 50% spent counseling the patient and coordination of care.
== END 2023-02-27 13:30 | disposition home or self-care (01) ==
LOC: SC 13:29
PROVIDERS: ATTEND Internal Medicine Pulmonary Disease
DX: G47.10 Hypersomnia, unspecified (principal); R41.89 Other symptoms and signs involving cognitive functions and awareness; R51.9 Headache, unspecified; G47.8 Other sleep disorders; R06.83 Snoring; E66.9 Obesity, unspecified; Z68.33 Body mass index [BMI] 33.0-33.9, adult
CPT/HCPCS: 99202; 99212

== ENCOUNTER 2023-03-01 11:03 | Outpatient (CLI) | payer MEDICAID ==
[2023-03-01 14:37] LABS: BASOPHILS # (AUTO) 0.1 10^3/uL (0.0-0.1); BASOPHILS % (AUTO) 0.8 %; EOSINOPHILS # (AUTO) 0.2 10^3/uL (0.0-0.7); EOSINOPHILS % (AUTO) 2.9 %; HCT - HEMATOCRIT 42.5 % (37.0-47.0); HGB - HEMOGLOBIN 13.8 g/dL (12.0-16.0); LYMPHOCYTES # (AUTO) 2.1 10^3/uL (1.5-3.5); MEAN CORPUSCULAR HEMOGLOBIN 27.4 pg (27.0-31.0); MEAN CORPUSCULAR HGB CONC 32.5 g/dL (32.0-36.0); MEAN CORPUSCULAR VOLUME 84.5 fL (81.0-99.0); MONOCYTES # (AUTO) 0.5 10^3/uL (0.0-1.0); MONOCYTES % (AUTO) 7.9 %; NEUTROPHILS # (AUTO) 3.6 10^3/uL (1.5-6.6); NEUTROPHILS % (AUTO) 55.2 %; PLT - PLATELET COUNT 337 10^3/uL (130-450); RED BLOOD COUNT 5.03 10^6/uL (4.20-5.40); RED CELL DISTRIBUTION WIDTH 14.7 % (12.0-15.0); WHITE BLOOD COUNT 6.5 x10^3/uL (4.8-10.8)
[2023-03-01 15:14] LABS: ALBUMIN 4.4 g/dL (3.2-5.5); ALBUMIN/GLOBULIN RATIO 1.5 (1.0-2.2); ALKALINE PHOSPHATASE 51 IU/L (42-121); ALT ALANINE AMINOTRANSFERASE 21 IU/L (10-60); AST ASPARTATE AMINOTRANSFERASE 21 IU/L (10-42); BILIRUBIN,TOTAL 0.8 mg/dL (0.2-1.0); BUN - BLOOD UREA NITROGEN 12 mg/dL (6-20); CALCIUM 9.2 mg/dL (8.5-10.3); CARBON DIOXIDE - CO2 24 mmol/L (21-32); CHLORIDE 110 mmol/L (101-111); CHOL/HDL RATIO 3.6 (<4.4); CHOLESTEROL 137 mg/dL; CREATININE 0.8 mg/dL (0.4-1.0); GFR - MDRD 87 (>89); GLUCOSE 102 mg/dL (70-100); HDL CHOLESTEROL 38 mg/dL; LDL CHOLESTEROL,CALCULATED 87 mg/dL; LDL/HDL RATIO 2.3 (<4.4); POTASSIUM 3.8 mmol/L (3.5-5.0); SODIUM 138 mmol/L (135-145); TOTAL PROTEIN 7.4 g/dL (6.7-8.2); TRIGLYCERIDES 62 mg/dL; VLDL CHOLESTEROL 12 mg/dL
[2023-03-01 15:33] LABS: THYROID STIMULATING HORMONE 0.85 uIU/mL (0.34-5.60)
== END 2023-03-01 11:04 | disposition home or self-care (01) ==
LOC: LAB.S 11:03
PROVIDERS: ATTEND Nurse Practitioner Family
DX: Z00.00 Encounter for general adult medical examination without abnormal findings (principal); G47.00 Insomnia, unspecified; F41.8 Other specified anxiety disorders
CPT/HCPCS: 36415; 80053; 80061; 83721; 84443; 85025

== ENCOUNTER 2023-03-06 19:45 | Outpatient (CLI) | payer MEDICAID | END 2023-03-06 19:46 | disposition home or self-care (01) | LOC: SC 19:45 | PROVIDERS: ATTEND Internal Medicine Pulmonary Disease | DX: G47.61 Periodic limb movement disorder (principal) | CPT/HCPCS: 95810 ==